=== PATIENT | male | born 1980 | race Caucasian/White ===

== ENCOUNTER 2019-12-05 16:24 | Emergency (ER) | payer SELFPAY ==
--- NOTE | 2019-12-05 17:27 | EDM.PDOC ---
ED HPI GENERAL MEDICAL PROBLEM - General Chief Complaint: Abdominal Pain Stated Complaint: BULDGE IN LOWER ABDOMEN Time Seen by Provider: 12/05/19 17:10 Source of Information: Reports: Patient, RN Notes Reviewed - History of Present Illness INITIAL COMMENTS - FREE TEXT/NARRATIVE: 39 yr old male that developed a swollen inflamed follicular cyst R upper scrotum a few days ago. He "squeezed it yesterday, got some pus to drain out" today there is increased swelling locally and increased swelling like a "small rope" radiating to the R lateral scrotum. No groin or other intrascrotal swelling. No fever or chills. No voiding sx. Right Groin Pain Score (Numeric/FACES): 6 - Related Data Allergies Allergy/AdvReac Type Severity Reaction Status Date / Time No Known Allergies Allergy Verified 12/05/19 16:57 Home Meds: Home Meds . [No Known Home Meds] 12/05/19 [History] Past Medical History - Past Health History Medical/Surgical History: Denies Medical/Surgical History ED ROS GENERAL - Review of Systems Review Of Systems: See Below Constitutional: Denies: Fever, Chills HEENT: Reports: No Symptoms Respiratory: Reports: No Symptoms Cardiovascular: Reports: No Symptoms Endocrine: Reports: No Symptoms GI/Abdominal: Reports: No Symptoms : Reports: Other (area of swelling and discomfort R scrotum) Musculoskeletal: Reports: No Symptoms Skin: Reports: Erythema (R scrotum) Neurological: Reports: No Symptoms ED EXAM, RENAL/ - Physical Exam Exam: See Below General Appearance: Alert, No Apparent Distress Head: Atraumatic Neck: Supple Respiratory/Chest: No Respiratory Distress (Male) Exam: Other (small area of follicular infection R upper scrutm, no active drainage, ropelike band of swelling, mild erythema traveling to the right, mildly tender, all of this is superfiscial in the skin of the scrotum, no intrascrotal mass or tenderness, no evidence for hernia) Neurological: Alert, Oriented, No Motor/Sensory Deficits Skin Exam: Warm, Dry Course - Vital Signs Last Recorded V/S: Last Vital Signs Temp 97.5 F 12/05/19 16:53 Pulse 80 12/05/19 16:53 Resp 18 12/05/19 16:53 BP 178/98 H 12/05/19 16:53 Pulse Ox 100 01/12/20 16:53 Departure - Departure Time of Disposition: 17:40 Disposition: Home, Self-Care 01 Condition: Fair Clinical Impression: Folliculitis Cellulitis Qualifiers: Site of cellulitis: unspecified site Qualified Code(s): L03.90 - Cellulitis, unspecified - Discharge Information Instructions: Cellulitis, Adult, Folliculitis Referrals: PCP,Not In Area [Primary Care Provider] - Forms: ED Department Discharge Additional Instructions: doxycycline antibiotic 100 mg twice daily for 10 days or until gone. You have been given your first dose here in the ED. Take your next dose later this evening. Warm compresses 3 to 4 times daily to area of infection as best you can. See clinic provider if not better within 3 to 4 days as expected or if worsening in any way. Sepsis Event Note - Evaluation Sepsis Screening Result: No Definite Risk - Focused Exam Date Exam was Performed: 12/06/19 Time Exam was Performed: 15:08
== END 2019-12-05 18:03 | disposition home or self-care (01) ==
LOC: JD.ED 16:24
DX: N49.2 Inflammatory disorders of scrotum (principal); L73.9 Follicular disorder, unspecified
CPT/HCPCS: 99283

== ENCOUNTER 2019-12-13 19:36 | Emergency (ER) | payer SELFPAY ==
--- NOTE | 2019-12-13 19:54 | EDM.PDOC ---
ED HPI GENERAL MEDICAL PROBLEM - General Chief Complaint: Abdominal Pain Stated Complaint: STOMACH PAIN Time Seen by Provider: 12/13/19 19:47 Source of Information: Reports: Patient History Limitations: Reports: No Limitations - History of Present Illness INITIAL COMMENTS - FREE TEXT/NARRATIVE: Patient's unfortunate 39-year-old male who presents today with his testicle. Patient reports that he had swelling there that looked like a pimple and he popped it about a week ago and pus came out and is here for evaluation patient was placed on doxycycline and reports the erythema redness is gone down but is not resolves presented emergency Department today for reevaluation. Patient has mild erythematous central clearing to his left testicle and has similar nayan the dorsum of the shaft of the penis which patient reports to wear- and-tear and reports that the reason that he got this infection in his testicles was because he got his zipper caught his scrotum which caused a clemente which ended up causing the infection - Related Data Allergies Allergy/AdvReac Type Severity Reaction Status Date / Time Sulfa (Sulfonamide Allergy Hives Verified 12/13/19 19:46 Antibiotics) Home Meds: Home Meds Doxycycline [Doxycycline Monohydrate] 100 mg PO DAILY 12/13/19 [History] Past Medical History - Past Health History Medical/Surgical History: Denies Medical/Surgical History Social & Family History - Caffeine Use Caffeine Use: Reports: None ED ROS GENERAL - Review of Systems Review Of Systems: See Below Constitutional: Denies: Fever, Chills : Reports: Other (Scrotal lesion) ED EXAM, RENAL/ - Physical Exam Exam: See Below Exam Limited By: No Limitations General Appearance: Alert, WD/WN, No Apparent Distress, Anxious Neck: Normal Inspection, Supple, Non-Tender, Full Range of Motion Respiratory/Chest: No Respiratory Distress, Lungs Clear, Normal Breath Sounds, No Accessory Muscle Use, Chest Non-Tender Cardiovascular: Normal Peripheral Pulses, Regular Rate, Rhythm, No Edema, No Gallop, No JVD, No Murmur, No Rub GI/Abdominal: Normal Bowel Sounds, Soft, Non-Tender, No Organomegaly, No Distention, No Abnormal Bruit, No Mass (Male) Exam: Other (Mild erythematous lesion less than 1 cm in diameter to the left upper scrotum at the base of the penis which arose and with mild surrounding erythema patient reports this is improved from previous episode, patient also has a similar lesion on the dorsum of his penis) Back Exam: Normal Inspection, Full Range of Motion, NT Extremities: Normal Inspection, Normal Range of Motion, Non-Tender, Normal Capillary Refill, No Pedal Edema Neurological: Alert Skin Exam: Warm, Dry Course - Re-Assessments/Exams Free Text/Narrative Re-Assessment/Exam: 12/13/19 19:54 I've instructed patient that I feel this may be herpetic in nature, he reports that it was not vesicular at all that it was pustular, and instructed patient to continue doxycycline and follow-up with his PCP as an outpatient Departure - Departure Time of Disposition: 19:54 Disposition: Home, Self-Care 01 Clinical Impression: Folliculitis - Discharge Information Referrals: PCP,Not In Area [Primary Care Provider] - Additional Instructions: Home, rest, continue doxycycline, return as needed for worsening condition
== END 2019-12-13 20:12 | disposition home or self-care (01) ==
LOC: JD.ED 19:36
DX: L73.9 Follicular disorder, unspecified (principal); Z88.2 Allergy status to sulfonamides; Z79.899 Other long term (current) drug therapy
CPT/HCPCS: 99281; 99283